=== PATIENT | male | born 1950 | race Caucasian/White ===

== ENCOUNTER → 2023-08-31 | Outpatient (CLI) | payer MEDICARE, OTHER ==
[2023-08-31 12:45] LABS: BASOPHILS ABSOLUTE AUTO 0.03 K/mm3 (0.00-0.23); BASOPHILS PERCENT AUTO 0 % (0-2); EOSINOPHILS PERCENT AUTO 1 % (0-6); Hematocrit 43.6 % (37.0-53.0); IMMATURE GRAN ABSOLUTE AUTO 0.03 K/mm3 (0.00-0.10); IMMATURE GRAN PERCENT AUTO 0 % (0-1); LYMPHOCYTES ABSOLUTE AUTO 2.03 K/mm3 (0.84-5.20); LYMPHOCYTES PERCENT AUTO 24 % (21-46); MONOCYTES PERCENT AUTO 19 % (4-13); Mean Corpuscular HGB 30.8 pg (26.0-34.0); Mean Corpuscular HGB Conc 32.1 g/dL (31.5-36.5); Mean Corpuscular Volume 96 fL (80-100); Mean Platelet Volume 10.5 fL (9.1-12.4); NEUTROPHILS ABSOLUTE AUTO 4.72 K/mm3 (1.96-9.15); NEUTROPHILS PERCENT AUTO 55 % (41-73); Platelet Count 163 K/mm3 (150-400); RDW Coefficient Variation 13.9 % (11.7-14.2); RDW Standard Deviation 49.1 fL (35.1-46.3); Red Blood Cell Count 4.55 M/mm3 (4.30-5.90); White Blood Cell Count 8.51 K/mm3 (4.00-11.30)
[2023-08-31 12:54] LABS: Albumin, Blood 3.4 g/dL (3.4-5.0); Albumin/Globulin Ratio 0.9 (0.8-1.8); Bun/Creatinine Ratio 15.7 (12.0-20.0); Calcium, Blood 9.4 mg/dL (8.5-10.1); Creatinine, Blood 1.4 mg/dL (0.60-1.20); Globulin, Blood 3.7 g/dL (2.2-4.0); Potassium, Blood 4.4 mmol/L (3.5-5.5); Total Protein, Blood 7.1 g/dL (6.4-8.2)
== END ==
LOC: LAB SHORT 12:41 → LAB 12:41
PROVIDERS: Physician Assistant Medical
DX: R06.00 Dyspnea, unspecified (principal)
CPT/HCPCS: 80053; 85025

== ENCOUNTER → 2024-02-14 | Outpatient (CLI) | payer MEDICARE, OTHER ==
[2024-02-14 11:18] LABS: BASOPHILS ABSOLUTE AUTO 0.02 K/mm3 (0.00-0.23); BASOPHILS PERCENT AUTO 0 % (0-2); EOSINOPHILS ABSOLUTE AUTO 0.14 K/mm3 (0.00-0.68); EOSINOPHILS PERCENT AUTO 2 % (0-6); Hemoglobin 13.1 g/dL (13.5-17.5); IMMATURE GRAN ABSOLUTE AUTO 0.01 K/mm3 (0.00-0.10); IMMATURE GRAN PERCENT AUTO 0 % (0-1); LYMPHOCYTES ABSOLUTE AUTO 1.29 K/mm3 (0.84-5.20); LYMPHOCYTES PERCENT AUTO 19 % (21-46); MONOCYTES ABSOLUTE AUTO 0.78 K/mm3 (0.16-1.47); MONOCYTES PERCENT AUTO 12 % (4-13); Mean Corpuscular HGB 30.7 pg (26.0-34.0); Mean Corpuscular Volume 96 fL (80-100); Mean Platelet Volume 10.7 fL (9.1-12.4); NEUTROPHILS ABSOLUTE AUTO 4.53 K/mm3 (1.96-9.15); NEUTROPHILS PERCENT AUTO 67 % (41-73); Platelet Count 149 K/mm3 (150-400); RDW Coefficient Variation 14.4 % (11.7-14.2); RDW Standard Deviation 50.4 fL (35.1-46.3); Red Blood Cell Count 4.27 M/mm3 (4.30-5.90); White Blood Cell Count 6.77 K/mm3 (4.00-11.30)
[2024-02-14 11:29] LABS: Albumin, Blood 3.6 g/dL (3.4-5.0); Albumin/Globulin Ratio 1.1 (0.8-1.8); Bun/Creatinine Ratio 12.4 (12.0-20.0); Calcium, Blood 9.2 mg/dL (8.5-10.1); Creatinine, Blood 1.21 mg/dL (0.60-1.20); Globulin, Blood 3.3 g/dL (2.2-4.0); Potassium, Blood 4.6 mmol/L (3.5-5.5); Total Protein, Blood 6.9 g/dL (6.4-8.2)
[2024-02-14 18:04] LABS: PSA, %Free 37.7 %
== END ==
LOC: LAB SHORT 11:12
PROVIDERS: Physician Assistant
DX: R10.9 Unspecified abdominal pain (principal); R82.81 Pyuria; N40.0 Benign prostatic hyperplasia without lower urinary tract symptoms
CPT/HCPCS: 80053; 83690; 84153; 84154; 85025; 87086

== ENCOUNTER 2024-04-24 18:55 | Observation (INO) | payer MEDICARE, OTHER ==
[~2024-04-24] VITALS: Ht 180.3 cm; Wt 105.1 kg
[2024-04-24 19:13] LABS: BASOPHILS ABSOLUTE AUTO 0.03 K/mm3 (0.00-0.23); BASOPHILS PERCENT AUTO 1 % (0-2); EOSINOPHILS ABSOLUTE AUTO 0.28 K/mm3 (0.00-0.68); EOSINOPHILS PERCENT AUTO 5 % (0-6); Hematocrit 42.2 % (37.0-53.0); Hemoglobin 13.2 g/dL (13.5-17.5); IMMATURE GRAN ABSOLUTE AUTO 0.01 K/mm3 (0.00-0.10); IMMATURE GRAN PERCENT AUTO 0 % (0-1); LYMPHOCYTES ABSOLUTE AUTO 1.98 K/mm3 (0.84-5.20); LYMPHOCYTES PERCENT AUTO 35 % (21-46); MONOCYTES ABSOLUTE AUTO 0.77 K/mm3 (0.16-1.47); MONOCYTES PERCENT AUTO 14 % (4-13); Mean Corpuscular HGB 29.9 pg (26.0-34.0); Mean Corpuscular HGB Conc 31.3 g/dL (31.5-36.5); Mean Corpuscular Volume 96 fL (80-100); Mean Platelet Volume 10.7 fL (9.1-12.4); NEUTROPHILS ABSOLUTE AUTO 2.57 K/mm3 (1.96-9.15); NEUTROPHILS PERCENT AUTO 46 % (41-73); Platelet Count 194 K/mm3 (150-400); RDW Standard Deviation 53.1 fL (35.1-46.3); Red Blood Cell Count 4.41 M/mm3 (4.30-5.90); White Blood Cell Count 5.64 K/mm3 (4.00-11.30)
[2024-04-24 19:26] LABS: Alanine Aminotransfer (ALT/SGP 12 U/L (12-78); Albumin, Blood 3.5 g/dL (3.4-5.0); Albumin/Globulin Ratio 1.2 (0.8-1.8); Alk Phos 73 U/L (50-136); Anion Gap 10 mmol/L (3-11); Aspartate Aminotrans (AST/SGOT 21 U/L (12-37); Bilirubin, Total 0.7 mg/dL (0.1-1.0); Blood Urea Nitrogen 22 mg/dL (8-24); Bun/Creatinine Ratio 17.2 (12.0-20.0); CO2, Blood 31 mmol/L (21-32); Calcium, Blood 9.2 mg/dL (8.5-10.1); Chloride, Blood 105 mmol/L (98-108); Creatinine, Blood 1.28 mg/dL (0.60-1.20); Ethanol (Alcohol), Blood, Med <3 mg/dL; Glomerular Filtration Rate 59 (60-); Glucose, Blood 105 mg/dL (70-99); International Normalized Ratio 1.11; Potassium, Blood 4.5 mmol/L (3.5-5.5); Prothrombin Time Results 11.8 Sec (9.7-11.5); Sodium, Blood 141 mmol/L (136-145); Total Protein, Blood 6.5 g/dL (6.4-8.2)
[2024-04-24] MEDS ORDERED: TRAZ50 PO (19:43)
[2024-04-24] MEDS ORDERED: LOSARTAN POTASS25 M2 PO (19:43)
[2024-04-24] MEDS ORDERED: IPRAT-ALBUT 0.5-3 ML (19:43)
[2024-04-24] MEDS ORDERED: FUROSEMIDE20 MG PO (19:43)
[2024-04-24] MEDS ORDERED: Potassium Chlo20 ME1 PO (19:43)
[2024-04-24] MEDS ORDERED: METOPROLOL SUCC25 MG PO (19:43)
[2024-04-24] MEDS ORDERED: Tenecteplase 50 MG / Kit IV ONE (19:55)
[2024-04-24] MEDS ORDERED: MONT10T PO (20:44)
[2024-04-24] MEDS ORDERED: Aspirin 81 MG Chew PO ONE (20:55)
[2024-04-24] MEDS ORDERED: Clopidogrel Bisulfate 75 MG Tab PO ONE (20:55)
[2024-04-24 21:59] LABS: U Amphetamine Screen Not Detected; U Barbituate Screen Not Detected; U Benzodiazapine Screen Not Detected; U Buprenorphine Screen Not Detected; U Cannabinoids Screen Not Detected; U Cocaine Screen Not Detected; U Methadone Screen Not Detected; U Methamphetamine Screen Not Detected; U Opiates Screen DETECTED; U Oxycodone Screen Not Detected; U Phencyclidine Screen Not Detected
[2024-04-24] MEDS ORDERED: Ipratropium/Albuterol SulF 2.5-0.5MG/3 ML Amp INH PRN (22:35)
[2024-04-24] MEDS ORDERED: TraZODone HCl 50 MG Tab PO PRN (22:35)
[2024-04-24] MEDS ORDERED: Bisacodyl 10 MG Supp PR PRN (22:40)
[2024-04-24] MEDS ORDERED: Acetaminophen 325 MG TABLET PO PRN (22:40)
[2024-04-24] MEDS ORDERED: Magnesium Hydroxide Conc 10 ML UDC PO PRN (22:45)
[2024-04-25 00:09] VITALS: BP 117/75
[2024-04-25 03:11] VITALS: BP 136/82
[2024-04-25 04:46] LABS: BASOPHILS ABSOLUTE AUTO 0.02 K/mm3 (0.00-0.23); BASOPHILS PERCENT AUTO 0 % (0-2); EOSINOPHILS ABSOLUTE AUTO 0.26 K/mm3 (0.00-0.68); EOSINOPHILS PERCENT AUTO 5 % (0-6); Hematocrit 39.8 % (37.0-53.0); Hemoglobin 12.7 g/dL (13.5-17.5); IMMATURE GRAN ABSOLUTE AUTO 0.01 K/mm3 (0.00-0.10); IMMATURE GRAN PERCENT AUTO 0 % (0-1); LYMPHOCYTES PERCENT AUTO 27 % (21-46); MONOCYTES ABSOLUTE AUTO 0.71 K/mm3 (0.16-1.47); MONOCYTES PERCENT AUTO 14 % (4-13); Mean Corpuscular HGB 30.2 pg (26.0-34.0); Mean Corpuscular HGB Conc 31.9 g/dL (31.5-36.5); Mean Corpuscular Volume 95 fL (80-100); Mean Platelet Volume 10.2 fL (9.1-12.4); NEUTROPHILS ABSOLUTE AUTO 2.86 K/mm3 (1.96-9.15); NEUTROPHILS PERCENT AUTO 54 % (41-73); Platelet Count 167 K/mm3 (150-400); RDW Standard Deviation 53.1 fL (35.1-46.3); White Blood Cell Count 5.26 K/mm3 (4.00-11.30)
[2024-04-25 05:18] LABS: Albumin, Blood 3.2 g/dL (3.4-5.0); Anion Gap 11 mmol/L (3-11); Blood Urea Nitrogen 22 mg/dL (8-24); Bun/Creatinine Ratio 19.3 (12.0-20.0); CO2, Blood 26 mmol/L (21-32); Calcium, Blood 9.3 mg/dL (8.5-10.1); Chloride, Blood 107 mmol/L (98-108); Cholesterol 188 mg/dL (50-200); Creatinine, Blood 1.14 mg/dL (0.60-1.20); Glomerular Filtration Rate 68 (60-); Glucose, Blood 106 mg/dL (70-99); HDL Cholesterol 62 mg/dL (>39); LDL/HDL RATIO 1.8; Low Density Lipoprotein Chol 114 mg/dL (0-110); Magnesium, Blood 2.3 mg/dL (1.6-2.4); Phosphorus, Blood 4.1 mg/dL (2.5-4.9); Potassium, Blood 4.1 mmol/L (3.5-5.5); Sodium, Blood 140 mmol/L (136-145); Triglycerides 62 mg/dL (30-160); Very Low Density Lipoprot Chol 12 mg/dL (6-32)
[2024-04-25] MEDS ORDERED: Mometasone/Formoterol MDI 200/5 mcg 13 GM INH SCH (06:40)
[2024-04-25] MEDS ORDERED: Albuterol HFA200 ACT/6.7 GM INH INH PRN (06:40)
[2024-04-25 07:26] VITALS: BP 118/74
[2024-04-25] MEDS ORDERED: Enoxaparin 40 MG/0.4 ML SYR SC SCH (09:00)
[2024-04-25] MEDS ORDERED: Losartan Potassium 25 MG Tab PO SCH (09:00)
[2024-04-25] MEDS ORDERED: Sennosides 8.6 MG Tab PO SCH (09:00)
[2024-04-25] MEDS ORDERED: Metoprolol Succinate 25 MG TABCR PO SCH (09:00)
[2024-04-25] MEDS ORDERED: Aspirin 81 MG TabEC PO SCH (09:00)
[2024-04-25] MEDS ORDERED: Clopidogrel Bisulfate 75 MG Tab PO SCH (09:00)
[2024-04-25] MEDS ORDERED: Docusate Sodium 100 MG Cap PO SCH (09:00)
[2024-04-25] MEDS ORDERED: Montelukast Sodium 10 MG Tab PO SCH (09:00)
[2024-04-25] MEDS ORDERED: Furosemide 20 MG Tab PO SCH (09:00)
[2024-04-25] MEDS ORDERED: ASPI81CH PO (15:06)
[2024-04-25] MEDS ORDERED: CLOP75 PO (15:07)
--- NOTE | 2024-04-25 15:40 | NUR ---
DISCHARGE SUMMARY: PT DISCHARGED @ 1540 AOX4 AND AMBULATED INTO WHEELCHAIR AND INTO CAR WITH . PT INDEPENDENT IN ROOM. PT FINISHED MRI AND GOT RESULTS AND REFUSED FURTHER IMAGING VIA ECHO. DR HOWARD NOTIFIED AND PT D/C. IV AND TELE REMOVED WITHOUT INCIDENT. PT IN GOOD MOOD, PLEASANT AFFECT, AND EXCITED TO BE GOING HOME.
--- NOTE | 2024-04-25 15:54 | NUR ---
THIS [employer] HAS REVIEWED AND AGREES WITH ALL NOTES AND ASSESSMENTS BY [employer].
== END 2024-04-25 15:46 | disposition home or self-care (01) ==
LOC: ER 18:55 → MEDS 18:56
PROVIDERS: Emergency Medicine; Family Medicine; ADMIT Internal Medicine
DX: I63.9 Cerebral infarction, unspecified (principal); R29.700 NIHSS score 0; I11.0 Hypertensive heart disease with heart failure; I50.9 Heart failure, unspecified; G47.00 Insomnia, unspecified; J44.9 Chronic obstructive pulmonary disease, unspecified; Z87.891 Personal history of nicotine dependence; Z88.5 Allergy status to narcotic agent; Z88.0 Allergy status to penicillin; Z79.899 Other long term (current) drug therapy
CPT/HCPCS: 36415; 70450; 70496; 70498; 70551; 71045; 80053; 80061; 80069; 80320; 82947; 83036; 83735; 85025; 85610; 85730; 93005; 93010; 94640; 94664; 94760; 96372; 99285-25; A9270; G0378; J1650; J3101; Q9967

== ENCOUNTER 2024-05-12 08:20 | Day surgery (SDC) | payer MEDICARE, OTHER ==
[~2024-05-12] VITALS: Ht 177.8 cm; Wt 108.0 kg
[2024-05-12] VITALS (8 sets, daily range): BP systolic 118–141; BP diastolic 61–110
[~2024-05-12 08:20] MED LIST: ALBU2.5V5 INH; ALBU90OI INH; ASPI81CH PO; BETA.05TCA TOP; CLOP75 PO; FUROSEMIDE20 MG PO; IPRAT-ALBUT 0.5-3 ML; LOSARTAN POTASS25 M2 PO; METOPROLOL SUCC25 MG PO; MONT10T PO; Potassium Chlo20 ME1 PO; TRAZ50 PO; [UNRECOGNIZED DRUG - CODE]
[2024-05-12] MEDS ORDERED: Verapamil HCL 2.5 MG/ML 2ML Injection ONE (08:45)
[2024-05-12] MEDS ORDERED: Nitroglycerin 2 MG/20 ML BTL ONE (08:46)
[2024-05-12] MEDS ORDERED: Heparin Sodium 1000 Units/ML 10ML MDV ONE (08:46)
[2024-05-12] MEDS ORDERED: NS 250 ML IV ONE (08:46)
[2024-05-12] MEDS ORDERED: NS 1,000 ML IV ONE ×2 (08:46→09:30)
[2024-05-12] MEDS ORDERED: FentaNYL Citrate 50 MCG/ML 2 ML Injection ONE (09:30)
[2024-05-12] MEDS ORDERED: Midazolam HCl 1MG / ML 2ML Vial ONE (09:30)
[2024-05-12] MEDS ORDERED: FARXIGA5 MG PO (11:02)
--- NOTE | 2024-05-12 12:13 | NUR ---
9CC AIR REMOVED FROM R WRIST TR BAND. NEG BLEEDING OR SWELLING.
--- NOTE | 2024-05-12 14:00 | NUR ---
PT AND VERBALIZED UNDERSTANDING OF WRITTEN AND VERBAL D/C INST. R WRIST TR BAND REMOVED. CLOTH DOT DRSG AND WRIST SPLINT APPLIED. IV REMOVED. PT AMB OUT OF THE [facility] /S DIFFICULTY.
== END 2024-05-12 14:00 | disposition home or self-care (01) ==
LOC: MHTC 08:20
DX: I25.119 Atherosclerotic heart disease of native coronary artery with unspecified angina pectoris (principal); I25.82 Chronic total occlusion of coronary artery; I11.0 Hypertensive heart disease with heart failure; I50.20 Unspecified systolic (congestive) heart failure; G47.30 Sleep apnea, unspecified; I45.5 Other specified heart block; J44.89 Other specified chronic obstructive pulmonary disease; E78.5 Hyperlipidemia, unspecified; Z88.0 Allergy status to penicillin; Z88.5 Allergy status to narcotic agent; Z88.1 Allergy status to other antibiotic agents; Z88.8 Allergy status to other drugs, medicaments and biological substances; Z79.899 Other long term (current) drug therapy
CPT/HCPCS: 76937; 93456; C1769; C1887; C1894; J1644; J2250; J3010; J7030; J7050; Q9967

== ENCOUNTER 2024-06-22 08:27 | Day surgery (SDC) | payer MEDICARE, OTHER ==
[~2024-06-22] VITALS: Ht 177.8 cm; Wt 108.0 kg
[2024-06-22] VITALS (8 sets, daily range): BP systolic 105–117; BP diastolic 58–75
[~2024-06-22 08:27] MED LIST changes: +FARXIGA5 MG PO
[2024-06-22] MEDS ORDERED: NEXLIZET 180-11 EACH PO (08:56)
[2024-06-22] MEDS ORDERED: CLOPIDOGREL75 MG PO (08:57)
[2024-06-22] MEDS ORDERED: Verapamil HCL 2.5 MG/ML 2ML Injection ONE (09:23)
[2024-06-22] MEDS ORDERED: NS 1,000 ML IV ONE ×2 (09:24→09:46)
[2024-06-22] MEDS ORDERED: NS 250 ML IV ONE (09:24)
[2024-06-22] MEDS ORDERED: Heparin Sodium 1000 Units/ML 10ML MDV ONE ×2 (09:24→09:46)
[2024-06-22] MEDS ORDERED: Midazolam HCl 1MG / ML 2ML Vial ONE (09:45)
[2024-06-22] MEDS ORDERED: FentaNYL Citrate 50 MCG/ML 2 ML Injection ONE (09:45)
[2024-06-22] MEDS ORDERED: Tirofiban HCL Monohydrate 3.75 MG/15 ML Vial ONE (10:35)
[2024-06-22] MEDS ORDERED: Clopidogrel Bisulfate 300 MG Cap ONE (10:55)
--- NOTE | 2024-06-22 13:15 | NUR ---
PT RIGHT RADIAL TR BAND FULLY DEFLATED. NO BLEEDING OR HEMATOMA NOTED. VSS. NADN. PT S/O AT BEDSIDE.
--- NOTE | 2024-06-22 13:55 | NUR ---
PT DRESSES SELF WITHOUT ASSISTANCE. PT TR BAND REMOVED. NO BLEEDING OR HEMATOMA NOTED. PT IV DC'D. CATH INTACT. PRESSURE DSG APPLIED. PT AMBULATES TO RESTROOM BACK WITHOUT DIFF. PT DC TO HOME VIA S/O BY [facility]
== END 2024-06-22 14:19 | disposition home or self-care (01) ==
LOC: MHTC 08:27
DX: I25.110 Atherosclerotic heart disease of native coronary artery with unstable angina pectoris (principal); I50.20 Unspecified systolic (congestive) heart failure; I45.5 Other specified heart block; J44.9 Chronic obstructive pulmonary disease, unspecified; E78.5 Hyperlipidemia, unspecified; Z88.0 Allergy status to penicillin; Z88.1 Allergy status to other antibiotic agents; Z88.5 Allergy status to narcotic agent; Z88.8 Allergy status to other drugs, medicaments and biological substances; Z79.899 Other long term (current) drug therapy
CPT/HCPCS: 76937; 85347; 99152; 99153; A9270; C1725; C1769; C1874; C1887; C1894; J1644; J2250; J3010; J3246; J7030; J7050; Q9967

== ENCOUNTER 2025-06-20 11:51 | Emergency (ER) | payer MEDICARE, OTHER ==
[~2025-06-20] VITALS: Ht 180.3 cm; Wt 100.2 kg
[~2025-06-20 11:51] MED LIST changes: +CLOPIDOGREL75 MG PO; +NEXLIZET 180-11 EACH PO
[2025-06-20 13:05] LABS: BASOPHILS ABSOLUTE AUTO 0.03 K/mm3 (0.00-0.23); BASOPHILS PERCENT AUTO 0 % (0-2); EOSINOPHILS ABSOLUTE AUTO 0.23 K/mm3 (0.00-0.68); EOSINOPHILS PERCENT AUTO 3 % (0-6); Hematocrit 46.4 % (37.0-53.0); Hemoglobin 15.2 g/dL (13.5-17.5); IMMATURE GRAN ABSOLUTE AUTO 0.02 K/mm3 (0.00-0.10); IMMATURE GRAN PERCENT AUTO 0 % (0-1); LYMPHOCYTES ABSOLUTE AUTO 1.76 K/mm3 (0.84-5.20); LYMPHOCYTES PERCENT AUTO 25 % (21-46); MONOCYTES ABSOLUTE AUTO 0.89 K/mm3 (0.16-1.47); MONOCYTES PERCENT AUTO 13 % (4-13); Mean Corpuscular HGB Conc 32.8 g/dL (31.5-36.5); Mean Corpuscular Volume 95 fL (80-100); NEUTROPHILS ABSOLUTE AUTO 4.00 K/mm3 (1.96-9.15); NEUTROPHILS PERCENT AUTO 58 % (41-73); NRBC ABSOLUTE 0.00 K/mm3 (0.00-0.02); NRBC Auto 0.0 /100 WBC (0.0-0.2); Platelet Count 153 K/mm3 (150-400); RDW Coefficient Variation 13.5 % (11.7-14.2); RDW Standard Deviation 47.2 fL (35.1-46.3)
[2025-06-20] MEDS ORDERED: DiphenhydrAMINE HCl 50 MG/ML 1ML Vial IV ONE (13:40)
[2025-06-20] MEDS ORDERED: Ketorolac Tromethamine 30mg Vial IV ONE (13:40)
[2025-06-20] MEDS ORDERED: Prochlorperazine Edisylate 10 mg Vial IV ONE (13:40)
[2025-06-20] MEDS ORDERED: Magnesium Sulf 2 GM/Water 50ML 50 ML IV ONE (13:45)
[2025-06-20] MEDS ORDERED: KLOR-CON 1010 ME9 PO (13:52)
[2025-06-20] MEDS ORDERED: JARDIANCE10 MG PO (13:53)
[2025-06-20] MEDS ORDERED: REPATHA SU140 MG/1 M SQ (13:53)
[2025-06-20] MEDS ORDERED: BREO ELLIPTA 21 EAC1 IH (13:55)
[2025-06-20] MEDS ORDERED: Lisinopril2.5 MG PO (13:55)
[2025-06-20 13:56] LABS: Alanine Aminotransfer (ALT/SGP 15.0 U/L (12-78); Albumin, Blood 3.9 g/dL (3.4-5.0); Albumin/Globulin Ratio 1.3 (0.8-1.8); Anion Gap 7.0 mmol/L (3-11); Aspartate Aminotrans (AST/SGOT 19.0 U/L (12-37); Bilirubin, Total 0.7 mg/dL (0.1-1.0); Blood Urea Nitrogen 22.0 mg/dL (8-24); CO2, Blood 31.0 mmol/L (21-32); Calcium, Blood 9.4 mg/dL (8.5-10.1); Chloride, Blood 105.0 mmol/L (98-108); Creatinine, Blood 1.11 mg/dL (0.60-1.20); Globulin, Blood 3.0 g/dL (2.2-4.0); Glucose, Blood 101.0 mg/dL (70-99); Potassium, Blood 4.5 mmol/L (3.5-5.5); Sodium, Blood 138.0 mmol/L (136-145); Total Protein, Blood 6.9 g/dL (6.4-8.2)
[2025-06-20 15:12] VITALS: BP 126/69
== END 2025-06-20 15:21 | disposition home or self-care (01) ==
LOC: ER 11:51
PROVIDERS: Emergency Medicine
DX: G43.109 Migraine with aura, not intractable, without status migrainosus (principal); Z88.0 Allergy status to penicillin; Z88.1 Allergy status to other antibiotic agents; Z79.899 Other long term (current) drug therapy; Z79.82 Long term (current) use of aspirin
CPT/HCPCS: 70450; 80053; 85025; 85651; 86140; 93005; 93010; 96365; 96375; 99284-25; J0780; J1200; J1885; J3475